=== PATIENT | female | born 1930 | race Asian ===

== ENCOUNTER 2016-04-22 10:35 | Inpatient (IN) | payer OTHER ==
--- NOTE | 2016-04-22 11:17 | UCPHY ---
H & P Patient Type: New Chief Complaint Nursing Narrative: Patient to with high blood pressure and dizziness this am. Patient is new resident at assisted living [facility] since 3 weeks ago. Patient called daughter this am and said she was dizzy. Time Seen by Provider: 04/22/16 11:10 HPI/ROS: This patient presents with a chief complaint of bifrontal headache, dizziness and elevated blood pressure which began early this morning. She is unable to speak described the characteristics of her dizziness although she feels extremely weak and her daughter says that she is barely able to walk and was unable to dress herself. At the assisted living facility here by blood pressure was as high as 170/116. She has been treated in the past for high blood pressure but has taken no medications for approximately 2 years. She describes photophobia but denies URI symptoms, cough, chest pain, shortness of breath nausea, vomiting or abdominal pain. The patient does not volunteer answers easily and throughout keeps her eyes shut. She recently moved to [place] from [place]. REVIEW OF SYSTEMS: Constitutional: No fever, weak and fatigued Eyes: Photophobia otherwise no complaints ENT: No recent sore throat or nasal congestion. No visual complaints Respiratory: Denies shortness of breath or cough Cardiac: Elevated blood pressure, no chest pain Gastrointestinal: Denies nausea, vomiting, abdominal pain or diarrhea Genitourinary: Not addressed Musculoskeletal: Chronic back pain, no edema and no calf pain Skin: No rash Neurological: Headache Source: Patient, RN notes reviewed - Personal History Current Tetanus Diphtheria and Acellular Pertussis (TDAP): Yes Tetanus Vaccine Date: < 10 years - Medical/Surgical History Hx Asthma: No Hx Chronic Respiratory Disease: No Hx Diabetes: No Hx Cardiac Disease: Yes Hx Renal Disease: No Hx Cirrhosis: No Hx Alcoholism: No Hx HIV/AIDS: No Hx Splenectomy or Spleen Trauma: No Other PMH: medical- HTN, GERD, chronic back pain, depression, chronic diarrhea, glaucoma, saesonal allergies. surgeries- back surgery, cortisone injections to back, appy - Family History Significant Family History: No pertinent family hx - Social History Smoking Status: Never smoked - Physical Exam Exam: GENERAL: Well-appearing, well-nourished and in no acute distress. HEAD: Atraumatic, normocephalic. EYES: Pupils equal round and reactive to light, extraocular movements intact, sclera anicteric, conjunctiva are normal. ENT: TMs normal, nares patent, oropharynx clear without exudates. Moist mucous membranes. NECK: Normal range of motion, supple without lymphadenopathy or JVD. Nontender LUNGS: Prominent rales are noticed at the left base posteriorly. The patient is in no respiratory distress HEART: Regular rate and rhythm without murmurs, rubs or gallops. ABDOMEN: Soft with some very mild tenderness. No guarding, no rebound. No masses appreciated. EXTREMITIES: Normal range of motion, no pitting or edema. No clubbing or cyanosis. NEUROLOGICAL: Cranial nerves II through XII grossly intact. Normal speech but speaks sparingly, she follows commands well and I can detect no motor dysfunction. PSYCH: Quiet and reserved SKIN: Warm, dry, normal turgor, no visible rashes or lesions. Constitutional: Initial Vital Signs Temperature (C) 37.0 C 04/22/16 10:44 Heart Rate 79 04/22/16 10:44 Respiratory Rate 20 04/22/16 10:44 Blood Pressure 227/100 H 04/22/16 10:44 O2 Sat (%) 92 04/22/16 10:44 O2 Delivery Mode Room Air Allergies/Adverse Reactions: codeine Allergy (Verified 04/22/16 10:44) Penicillins Allergy (Verified 04/22/16 10:43) Home Medications: Medication Instructions Recorded ALPHAGAN P 0.1% (*) 1 drop BID 04/22/16 Ativan (*) 04/22/16 Cholecalciferol Vit D3 [Vitamin D3 3,000 units DAILY 04/22/16 (*)] Dexlansoprazole [Dexilant] 60 mg DAILY 04/22/16 Dicyclomine HCl 04/22/16 Docusate Sodium [Colace 100 MG (*)] 100 mg DAILY 04/22/16 Ipratropium 0.03% Nasal [Atrovent 2 sprays TID 04/22/16 0.03% Nasal (*)] Pregabalin [Lyrica 50mg (*)] 25 mg BID 04/22/16 Sucralfate [Carafate 1 GM (*)] 1 g HS 04/22/16 Vortioxetine Hydrobromide DAILY 04/22/16 [Trintellix] ZyrTEC 10 mg (*) 10 mg DAILY 04/22/16 traMADol [Ultram 50 mg (*)] 04/22/16 Medical Decision Making - Diagnostics EKG Interpretation: An EKG shows no acute changes. Imaging: A non contrasted CT scan of the head shows a stay stable elderly brain with no acute changes. A chest x-ray shows mild cardiomegaly without other findings of congestive heart failure. The radiologist also thought that there are changes in the retrocardiac area consistent with either an infiltrate or atelectasis. ED Course/Re-evaluation: The patient was monitored throughout her stay in the department and she remained stable and in good condition Because this patient is incapacitated and is not exactly clear what problem is it was elected to admit the patient. Arrangements have been made through the hospitalist service to admit this patient. Currently we are waiting for a bed. Differential Diagnosis: I suspect that this patient is suffering from vertigo but that this is not related to a serious intra is cranial problem. There are no metabolic abnormalities nor any obvious end-organ effects from her elevated blood pressure. - Data Points Laboratory Results: Laboratory Results 04/22/16 11:40 04/22/16 11:40 04/22/16 11:40 WBC 6.24 10^3/uL (3.80-9.50) RBC 4.42 10^6/uL (4.18-5.33) Hgb 14.2 g/dL (12.6-16.3) Hct 42.0 % (38.0-47.0) MCV 95.0 fL (81.5-99.8) MCH 32.1 pg (27.9-34.1) MCHC 33.8 g/dL (32.4-36.7) RDW 12.4 % (11.5-15.2) Plt Count 191 10^3/uL (150-400) MPV 9.5 fL (8.7-11.7) Neut % (Auto) 65.6 % (39.3-74.2) Lymph % (Auto) 24.8 % (15.0-45.0) [place] % (Auto) 7.1 % (4.5-13.0) Eos % (Auto) 1.6 % (0.6-7.6) Baso % (Auto) 0.6 % (0.3-1.7) Nucleat RBC Rel Count 0.0 % (0.0-0.2) Absolute Neuts (auto) 4.09 10^3/uL (1.70-6.50) Absolute Lymphs (auto) 1.55 10^3/uL (1.00-3.00) Absolute Monos (auto) 0.44 10^3/uL (0.30-0.80) Absolute Eos (auto) 0.10 10^3/uL (0.03-0.40) Absolute Basos (auto) 0.04 10^3/uL (0.02-0.10) Absolute Nucleated RBC 0.00 10^3/uL (0-0.01) Immature Gran % 0.3 % (0.0-1.1) Immature Gran # 0.02 10^3/uL (0.00-0.10) Sodium 136 mEq/L (134-144) Potassium 3.7 mEq/L (3.5-5.2) Chloride 98 mEq/L (97-110) Carbon Dioxide 29 mEq/l (22-31) Anion Gap 9 mEq/L (8-16) BUN 13 mg/dL (7-23) Creatinine 0.5 L mg/dL (0.6-1.0) Estimated GFR > 60 Glucose 96 mg/dL (70-100) Calcium 9.0 mg/dL (8.5-10.4) Total Bilirubin 1.1 mg/dL (0.1-1.4) AST 14 IU/L (14-46) ALT 17 IU/L (9-52) Alkaline Phosphatase 44 IU/L (38-126) Troponin I < 0.012 ng/mL (0-0.034) NT-Pro-B Natriuret Pep 200 pg/mL (0-450) Total Protein 6.8 g/dL (6.3-8.2) Albumin 3.7 g/dL (3.5-5.0) Medications Given: Discontinued Medications Tramadol HCl (Ultram) 50 mg PO ONCE ONE Stop: 04/22/16 13:07 Last Admin: 04/22/16 13:08 Dose: 50 mg Departure - Departure Disposition: Home, Routine, Self-Care Clinical Impression: Headache, Elevated blood pressure reading Condition: Good - PQRS PQRS Measurement: Not applicable
--- NOTE | 2016-04-22 11:45 | CPEKG ---
Heart Rate: 74 RR Interval: 811 P-R Interval: 188 QRSD Interval: 84 QT Interval: 424 QTC Interval: 471 P [place]: 1 QRS [place]: -19 T Wave [place]: -36 EKG Severity - ABNORMAL ECG - EKG Impression: SINUS RHYTHM EKG Impression: CONSIDER LEFT VENTRICULAR HYPERTROPHY EKG Impression: NONSPECIFIC T ABNORMALITIES, INFERIOR LEADS Electronically Signed By: Andrade Lundy 22-Apr-2016 11:45:47
[2016-04-22 11:50] LABS: % IMMATURE GRANULYOCYTES 0.3 % (0.0-1.1); ABSOLUTE IMMATURE GRANULOCYTES 0.02 10^3/uL (0.00-0.10); ADD DIFF? NO; ADD MORPH? NO; ADD SCAN? NO; ATYPICAL LYMPHOCYTE FLAG 10 (0-99); FRAGMENT RBC FLAG 0 (0-99); HEMOGLOBIN 14.2 g/dL (12.6-16.3); LEFT SHIFT FLG 0 (0-99); LIPEMIA HEMOLYSIS FLAG 90 (0-99); MEAN CELL HEMOGLOBIN 32.1 pg (27.9-34.1); MEAN CELL HEMOGLOBIN CONCENTR. 33.8 g/dL (32.4-36.7); MEAN PLATELET VOLUME 9.5 fL (8.7-11.7); PLATELET CLUMPS FLAG 0 (0-99); PLATELET COUNT 191 10^3/uL (150-400); RED BLOOD CELL COUNT 4.42 10^6/uL (4.18-5.33); RED CELL DISTRIBUTION WIDTH 12.4 % (11.5-15.2)
[2016-04-22 12:04] LABS: ALANINE AMINOTRANSFERASE 17 IU/L (9-52); ALBUMIN 3.7 g/dL (3.5-5.0); ALKALINE PHOSPHATASE 44 IU/L (38-126); ANION GAP 9 mEq/L (8-16); ASPARTATE AMINOTRANSFERASE 14 IU/L (14-46); BILIRUBIN,TOTAL 1.1 mg/dL (0.1-1.4); CARBON DIOXIDE 29 mEq/l (22-31); CHLORIDE 98 mEq/L (97-110); CREATININE 0.5 mg/dL (0.6-1.0); GLOMERULAR FILTRATION RATE > 60; GLUCOSE 96 mg/dL (70-100); SODIUM 136 mEq/L (134-144); TOTAL PROTEIN 6.8 g/dL (6.3-8.2)
[2016-04-22 12:05] LABS: POTASSIUM 3.7 mEq/L (3.5-5.2)
[2016-04-22 12:13] LABS: TROPONIN I < 0.012 ng/mL (0-0.034)
--- NOTE | 2016-04-22 12:30 | DX ---
Chest, AP Upright and Lateral Views - April 22, 2016, at 11:54 a.m. Clinical History: 86-year-old female with an elevated blood pressure, rales at the left base, and diz ziness. Comparison Study: None. Findings: The cardiac silhouette appears mildly enlarged (even given the portable AP technique). Ther e is mural calcification of the thoracic aorta. Costochondral calcifications are observed. On the lat eral view, there is some increased attenuation at the posterior lung base, which may be left-sided (q uery mild airspace disease). There is an upper lumbar vertebroplasty and compression deformity. There is a mild sigmoid-shaped thoracolumbar scoliosis. There is no peripheral interstitial edema, pleural effusion, or pneumothorax. The trachea is midline. Impression: 1. Possible left posteromedial lower lobe infiltrate versus subsegmental atelectasis or scar. 2. Borderline-cardiomegaly, without congestive heart failure.
--- NOTE | 2016-04-22 12:34 | CT ---
CT Brain (Without Contrast) April 22, 2016 at 1205 hours History: Headache and elevated blood pressure. Comparison: None relevant. Technique: Axial computed tomographic images of the brain without contrast. Dose reduction techniques were utilized. Findings: Ventricles, cisterns, and sulci are widened consistent with atrophy. No hydrocephalus, mid line shift/herniation, or epidural/subdural hematomas. No acute intraparenchymal hemorrhage or mass e ffect. Cerebrovascular atherosclerosis. Hypodensities in the white matter of bilateral cerebral hemis pheres. Bone windows demonstrate no displaced fractures. Paranasal sinuses and mastoid air cells are clear. Impression: 1. Moderate atrophy. 2. No acute hemorrhage, hydrocephalus, or mass effect. 3. Cerebrovascular atherosclerosis. 4. No definite acute infarct. 5. Moderate microvascular ischemic disease. Critical results relayed by Dr. Mauro Pillai to Dr. Andrade Lundy on April 22, 2016 at 1232 hours.
[2016-04-22] MEDS ORDERED: traMADol 50 MG TAB ONE (13:04)
[2016-04-22] MEDS ORDERED: traMADol 50 MG TAB PO ONE (13:06)
[2016-04-22 14:06] LABS: COLOR YELLOW; LEUKOCYTE ESTERASE,URINE NEGATIVE (NEGATIVE); NITRITE,URINE NEGATIVE (NEGATIVE); PH,URINE 7.5 (5.0-7.5)
[2016-04-22] MEDS ORDERED: ONDANSETRON DISINTEGRATING 4 MG TAB PO PRN (16:21)
[2016-04-22] MEDS ORDERED: ONDANSETRON 4 MG/2 ML VIAL IVP PRN (16:21)
[2016-04-22] MEDS ORDERED: LISINOPRIL 5 MG TAB PO SCH (16:30)
[2016-04-22] MEDS ORDERED: LABETALOL HCL 200 MG in D5W 200 ML IV SCH (16:30)
--- NOTE | 2016-04-22 16:42 | CPEKG ---
Heart Rate: 74 RR Interval: 811 P-R Interval: 184 QRSD Interval: 86 QT Interval: 428 QTC Interval: 475 P [place]: 24 QRS [place]: 18 T Wave [place]: -28 EKG Severity - ABNORMAL ECG - EKG Impression: SINUS RHYTHM EKG Impression: ABNRM R PROG, CONSIDER ASMI OR LEAD PLACEMENT EKG Impression: BORDERLINE T ABNORMALITIES, INFERIOR LEADS Electronically Signed By: Jose Ng 23-Apr-2016 06:56:10
--- NOTE | 2016-04-22 17:23 | PDGENHP ---
History and Physical - Chief Complaint dizziness, headache - History of Present Illness 86 yo female with h/o hypertension though currently off medications due to issues with hypotension, presented to urgent care with dizziness and headache. She just moved to [facility] in [place] from [place] 3 weeks ago. She had been feeling well, but awoke this am with dizziness and headache. She denies vertigo. She denies vision changes. She denies CP or SOB. No fevers or chills. No N/V/D or abdominal pain. In Urgent care, her BP was found to be quite elevated, as high as 220's/110's. She is directly admitted to the hospital for further management. History Information - Allergies/Home Medication List Allergies/Adverse Reactions: casein Allergy (Verified 04/22/16 16:30) codeine Allergy (Verified 04/22/16 10:44) gluten Allergy (Verified 04/22/16 16:30) lisinopril Allergy (Unverified 04/22/16 18:45) Other-Enter Comments Penicillins Allergy (Verified 04/22/16 10:43) Home Medications: Acetaminophen [Tylenol Arthritis] 650 mg PO DAILY PRN 04/22/16 [Last Taken Unknown] Calcium Citrate W/Vit D [Citracal + D (OTC)] 3 tab PO DAILY 04/22/16 [Last Taken Unknown] Cetirizine [ZyrTEC 10 mg (*)] 10 mg PO DAILY 04/22/16 [Last Taken Unknown] Cholecalciferol Vit D3 [Vitamin D3 (*)] 3,000 units PO DAILY 04/22/16 [Last Taken Unknown] Dexlansoprazole [Dexilant] 60 mg PO DAILY 04/22/16 [Last Taken 04/22/16] Dicyclomine [Bentyl 10 MG (*)] 10 mg PO DAILY PRN 04/22/16 [Last Taken Unknown] Docusate Sodium [Colace 100 MG (*)] 100 mg PO BID PRN 04/22/16 [Last Taken Unknown] LORazepam [Ativan (*)] 0.5 mg PO HS 04/22/16 [Last Taken Unknown] Pregabalin [Lyrica 25mg (RX)] 25 mg PO BID@12,17 04/22/16 [Last Taken 04/22/16 12:00] Sucralfate [Carafate 1 GM (*)] 1 gm PO ACHS 04/22/16 [Last Taken Unknown] Timolol 0.25% [TIMOPTIC 0.25% (*)] 1 drops EACHEYE DAILY 04/22/16 [Last Taken Unknown] Vortioxetine Hydrobromide [Brintellix] 5 mg PO DAILY 04/22/16 [Last Taken 12:00] traMADol [Ultram 50 mg (*)] 50 mg PO DAILY PRN 04/22/16 [Last Taken 04/22/16] I have personally reviewed and updated: family history, medical history, social history, surgical history - Past Medical History hypertension - Surgical History Reports: appendectomy Additional surgical history: spinal fusion - Family History Positive for: myocardial infarction (dad of [place] in his 70's) - Social History Smoking Status: Never smoked Alcohol Use: None Drug Use: None (Just moved to [facility] here in [place] from [place]) Review of Systems ROS: 10pt was reviewed & negative except for what was stated in HPI & below Physical Exam Temp Pulse Resp BP Pulse Ox 36.8 C 78 16 203/109 H 95 04/22/16 15:48 04/22/16 15:48 04/22/16 15:48 04/22/16 15:48 04/22/16 15:48 Constitutional: no apparent distress Eyes: PERRL Ears, Nose, Mouth, Throat: moist mucous membranes Cardiovascular: regular rate and rhythym, no murmur, rub, or gallop Respiratory: no respiratory distress, clear to auscultation Gastrointestinal: normoactive bowel sounds, soft, non-tender abdomen, other (no abdominal bruits) Skin: warm Neurologic: AAOx3 Psychiatric: interacting appropriately Lab Data & Imaging Review 04/22/16 11:40 04/22/16 11:40 WBC 6.24 10^3/uL (3.80-9.50) 04/22/16 11:40 RBC 4.42 10^6/uL (4.18-5.33) 04/22/16 11:40 Hgb 14.2 g/dL (12.6-16.3) 04/22/16 11:40 Hct 42.0 % (38.0-47.0) 04/22/16 11:40 MCV 95.0 fL (81.5-99.8) 04/22/16 11:40 MCH 32.1 pg (27.9-34.1) 04/22/16 11:40 MCHC 33.8 g/dL (32.4-36.7) 04/22/16 11:40 RDW 12.4 % (11.5-15.2) 04/22/16 11:40 Plt Count 191 10^3/uL (150-400) 04/22/16 11:40 MPV 9.5 fL (8.7-11.7) 04/22/16 11:40 Neut % (Auto) 65.6 % (39.3-74.2) 04/22/16 11:40 Lymph % (Auto) 24.8 % (15.0-45.0) 04/22/16 11:40 [place] % (Auto) 7.1 % (4.5-13.0) 04/22/16 11:40 Eos % (Auto) 1.6 % (0.6-7.6) 04/22/16 11:40 Baso % (Auto) 0.6 % (0.3-1.7) 04/22/16 11:40 Nucleat RBC Rel Count 0.0 % (0.0-0.2) 04/22/16 11:40 Absolute Neuts (auto) 4.09 10^3/uL (1.70-6.50) 04/22/16 11:40 Absolute Lymphs (auto) 1.55 10^3/uL (1.00-3.00) 04/22/16 11:40 Absolute Monos (auto) 0.44 10^3/uL (0.30-0.80) 04/22/16 11:40 Absolute Eos (auto) 0.10 10^3/uL (0.03-0.40) 04/22/16 11:40 Absolute Basos (auto) 0.04 10^3/uL (0.02-0.10) 04/22/16 11:40 Absolute Nucleated RBC 0.00 10^3/uL (0-0.01) 04/22/16 11:40 Immature Gran % 0.3 % (0.0-1.1) 04/22/16 11:40 Immature Gran # 0.02 10^3/uL (0.00-0.10) 04/22/16 11:40 Sodium 136 mEq/L (134-144) 04/22/16 11:40 Potassium 3.7 mEq/L (3.5-5.2) 04/22/16 11:40 Chloride 98 mEq/L (97-110) 04/22/16 11:40 Carbon Dioxide 29 mEq/l (22-31) 04/22/16 11:40 Anion Gap 9 mEq/L (8-16) 04/22/16 11:40 BUN 13 mg/dL (7-23) 04/22/16 11:40 Creatinine 0.5 mg/dL (0.6-1.0) L 04/22/16 11:40 Estimated GFR > 60 04/22/16 11:40 Glucose 96 mg/dL (70-100) 04/22/16 11:40 Calcium 9.0 mg/dL (8.5-10.4) 04/22/16 11:40 Total Bilirubin 1.1 mg/dL (0.1-1.4) 04/22/16 11:40 AST 14 IU/L (14-46) 04/22/16 11:40 ALT 17 IU/L (9-52) 04/22/16 11:40 Alkaline Phosphatase 44 IU/L (38-126) 04/22/16 11:40 Troponin I < 0.012 ng/mL (0-0.034) 04/22/16 11:40 NT-Pro-B Natriuret Pep 200 pg/mL (0-450) 04/22/16 11:40 Total Protein 6.8 g/dL (6.3-8.2) 04/22/16 11:40 Albumin 3.7 g/dL (3.5-5.0) 04/22/16 11:40 Urine Color YELLOW 04/22/16 14:00 Urine Appearance CLEAR 04/22/16 14:00 Urine pH 7.5 (5.0-7.5) 04/22/16 14:00 Ur Specific [place] 1.015 (1.002-1.030) 04/22/16 14:00 Urine Protein NEGATIVE (NEGATIVE) 04/22/16 14:00 Urine Ketones NEGATIVE (NEGATIVE) 04/22/16 14:00 Urine Blood NEGATIVE (NEGATIVE) 04/22/16 14:00 Urine Nitrate NEGATIVE (NEGATIVE) 04/22/16 14:00 Urine Bilirubin NEGATIVE (NEGATIVE) 04/22/16 14:00 Urine Urobilinogen 0.2 EU (0.2-1.0) 04/22/16 14:00 Ur Leukocyte Esterase NEGATIVE (NEGATIVE) 04/22/16 14:00 Urine Glucose NEGATIVE (NEGATIVE) 04/22/16 14:00 Assessment & Plan Assessment: Hypertensive urgency - BP's >200/110 persistently, likely causing her headache and dizziness. Will give 5 mg IV Labetalol now, repeat in 30 min if SBP not down to 180. Aim for 10-20% reduction now and will start Labetalol drip overnight for titration of sbp to 160-180. Start oral Norvasc in AM and titrate off drip as able, up-titrate Norvasc over next 1-2 days. She developed cough from GENE inhibitor in the past. EKG shows T wave inversions. Pt has been CP free, initial troponin negative. Will repeat EKG and Troponin. Check echo as suspect LVH by EKG. Monitor on telemetry. GERD - cont PPI SPinal stenosis with neuropathic pain - will resume Lyrica, Tramadol once med rec completed Code status: DNR DVT PPLX: NESS Dispo: will likely require >48 hrs hospitalization for ongoing management of hypertensive urgency
[2016-04-22] MEDS: LABETALOL HCL 5 MG/ML 20 ML MDV IVP ONE ×2 (17:27→18:07)
[2016-04-22] MEDS: PANTOPRAZOLE SODIUM 40 MG TAB PO SCH (18:05)
[2016-04-22] MEDS: ACETAMINOPHEN 325 MG TAB PO PRN (18:24)
[2016-04-22] MEDS ORDERED: DICYCLOMINE 10 MG CAP PO PRN (19:03)
[2016-04-22] MEDS ORDERED: DOCUSATE SODIUM 100 MG CAP PO PRN (19:03)
[2016-04-22] MEDS: SUCRALFATE 1 GM TAB PO SCH (20:00)
[2016-04-22] MEDS: LORazepam 0.5 MG TAB PO SCH (20:00)
[2016-04-22] MEDS: PREGABALIN 25 MG CAP PO SCH (20:00)
[2016-04-22] MEDS ORDERED: LABETALOL HCL 5 MG/ML 20 ML MDV IVP PRN (20:10)
[2016-04-22] MEDS: HEPARIN 5,000 UNIT/0.5 ML SYR SC SCH (21:54)
[2016-04-23] MEDS: HEPARIN 5,000 UNIT/0.5 ML SYR SC SCH ×3 (06:18→21:21)
[2016-04-23] MEDS: SUCRALFATE 1 GM TAB PO SCH ×4 (06:24→21:22)
[2016-04-23] MEDS ORDERED: LABETALOL HCL 5 MG/ML 20 ML MDV IVP PRN (08:13)
[2016-04-23] MEDS ORDERED: VORTIOXETINE HYDROBROMIDE 5 MG PO SCH ×2 (09:00)
[2016-04-23] MEDS: ACETAMINOPHEN 325 MG TAB PO PRN ×3 (09:24→17:57)
[2016-04-23] MEDS: PANTOPRAZOLE SODIUM 40 MG TAB PO SCH (09:25)
[2016-04-23] MEDS: traMADol 50 MG TAB PO PRN (09:25)
[2016-04-23] MEDS: CETIRIZINE 10 MG TAB PO SCH (09:25)
--- NOTE | 2016-04-23 11:07 | ECHO ---
[id number] + + [phone] : : [place] [id number] : : [phone] + + Adult Echocardiographic Report + -----+ :Name: SHAHEED CARRANZA KStudy Date: 04/23/2016 07:59 AM BP: 184/95 mmHg : : Hospital Admission Number: [id number] Location : 217: :: 1930 Gender: Female Height: 59 in : :Age: 86 yrs Race: Weight: 105 lb : :Reason For Study: htn : : BSA: 1.4 meters2 : :History: HTN,LVH by ecg : + -----+ MMode/2D Measurements & Calculations IVSd: 1.3 cm RVDd: 2.3 cm FS: 37.8 % Ao root diam: LVPWd: 1.1 cm LVIDd: 4.1 cm EDV(Teich): 2.7 cm LVIDs: 2.5 cm 74.2 ml LA dimension: ESV(Teich): 3.2 cm 23.4 ml EF(Teich): 68.4 % LVLd ap4: 7.3 cm SV(MOD-sp4): EDV(MOD-sp4): 43.0 ml 68.0 ml LVLs ap4: 6.3 cm ESV(MOD-sp4): 25.0 ml EF(MOD-sp4): 63.2 % Normal Measurement Values: + + :LVIDd (3.5-5.7cm) IVSd (0.6-1.1cm) LVPWd (0.6-1.1cm) Aortic Root (2.0-3.7cm)Left Atrium (1.5-4.0cm): :LV Vol(d) (76-115ml) LV Vol(s) (29-48ml) Ejec Fraction (50-65%)PV Koko (0.6- 1.2m/s) TV Koko (0.4-1.0m/s) : :MV E Koko (0.8-1.0m/s)MV A Koko (0.3-1.0m/s)LVOT Koko (0.7-1.2m/s) Asc Ao Koko ( 0.9-1.8m/s) : + + Doppler Measurements & Calculations MV E max koko: Ao V2 max: AI max koko: LV V1 max: 62.7 cm/sec 121.0 cm/sec 429.0 cm/sec 92.5 cm/sec MV A max koko: Ao max P.9 mmHgAI max P.6 mmHgLV V1 max P.8 cm/sec Ao mean PG: AI dec slope: 3.4 mmHg MV E/A: 0.66 4.0 mmHg 254.0 cm/sec2 LV V1 mean PG: MV dec time: Ao V2 mean: AI P1/2t: 494.7 msec2.0 mmHg 0.26 sec 90.9 cm/sec LV V1 mean: Ao V2 VTI: 29.3 cm 69.6 cm/sec LV V1 VTI: 20.5 cm PA V2 max: PI end-d koko: TR max koko: 92.3 cm/sec 64.1 cm/sec 261.0 cm/sec PA max PG: TR max P.2 mmHg 3.4 mmHg RAP systole: 5.0 mmHg RVSP(TR): 32.2 mmHg Left Ventricle The left ventricle is normal in size and function. There is mild to moderate concentric left ventricular hypertrophy. There is Doppler evidence for diastolic dysfunction. Ejection Fraction = 60-65%. No regional wall motion abnormalities noted. Right Ventricle The right ventricle is normal in size and function. Atria The left atrial size is normal. Right atrial size is normal. Mitral Valve The mitral valve is normal. The mitral valve leaflets appear thickened, but open well. There is no mitral valve stenosis. There is moderate mitral regurgitation. Tricuspid Valve The tricuspid valve is normal in structure and function. There is no tricuspid stenosis. There is mild tricuspid regurgitation. Right ventricular systolic pressure is 32mmHg. Aortic Valve The aortic valve is trileaflet. There is mild aortic valve calcification. There is no aortic stenosis. Mild aortic regurgitation. Pulmonic Valve The pulmonic valve is not well visualized. Mild pulmonic valvular regurgitation. Great Vessels Mild aortic root dilatation. Pericardium/Pleural There is no pericardial effusion. Conclusion A two-dimensional transthoracic echocardiogram with M-mode and Doppler was performed. The left ventricle is normal in size and function. There is mild to moderate concentric left ventricular hypertrophy. There is Doppler evidence for diastolic dysfunction. Ejection Fraction = 60-65%. There is moderate mitral regurgitation. There is mild tricuspid regurgitation. Right ventricular systolic pressure is 32mmHg. Mild aortic regurgitation. Mild pulmonic valvular regurgitation. Mild aortic root dilatation. Final Reading Physician: Odalys Ruff signed on 04/23/2016 11:07 AM Ordering Physician: Alesia Mott Performed By: Nadia Ulloa
[2016-04-23] MEDS: PREGABALIN 25 MG CAP PO SCH ×2 (13:08→18:36)
[2016-04-23] MEDS: TIMOLOL 0.25% 5 ML OPHT.BTL EACHEYE SCH (17:05)
--- NOTE | 2016-04-23 17:30 | HOSPPROG ---
Hospitalist Progress Note Assessment/Plan: Hypertensive urgency - SBP improved to 170 from >200 yesterday afternoon. Symptoms improving. Will increase Norvasc dose, cont prn labetalol. Echo confirms LVH, nl LV fxn, +diastolic dysfunction. GERD - cont PPI Spinal stenosis with neuropathic pain- cont lyrica DNR DVT PPLX - lovenox Dispo - cont inpt Subjective: Pt feels better. Headache and dizziness improved. No CP, SOB or vision changes. Still feels a bit weak. Objective: Vital Signs Temp Pulse Resp BP Pulse Ox 37.0 C 72 18 137/83 H 91 L 04/23/16 15:35 04/23/16 15:35 04/23/16 15:35 04/23/16 15:35 04/23/16 15:35 04/22/16 04/23/16 04/24/16 05:59 05:59 05:59 Intake Total 300 Balance 300 - Physical Exam Constitutional: no apparent distress Eyes: PERRL Ears, Nose, Mouth, Throat: moist mucous membranes Cardiovascular: regular rate and rhythym Respiratory: no respiratory distress, clear to auscultation Gastrointestinal: normoactive bowel sounds, soft, non-tender abdomen Skin: warm Neurologic: AAOx3 Psychiatric: interacting appropriately ICD10 Worksheet Patient Problems: Problems Problem Status Diagnosed Elevated blood pressure reading Acute Headache Acute
[2016-04-23] MEDS: VORTIOXETINE HYDROBROMIDE 5 MG PO SCH (17:55)
[2016-04-23] MEDS: DOCUSATE SODIUM 100 MG CAP PO SCH (21:22)
[2016-04-23] MEDS: LORazepam 0.5 MG TAB PO SCH (21:23)
[2016-04-24 03:53] VITALS: TEMP 97.8
[2016-04-24] MEDS: HEPARIN 5,000 UNIT/0.5 ML SYR SC SCH (06:42)
--- NOTE | 2016-04-24 08:09 | PDIAF ---
- Diagnosis Diagnosis: hypertension Code Status: Do Not Resuscitate - Medication Management Discharge Medications: Medications to Continue on Transfer Acetaminophen [Tylenol Arthritis] 650 mg PO DAILY PRN 04/22/16 [Last Taken Unknown] Calcium Citrate W/Vit D [Citracal + D] 3 tab PO DAILY 04/22/16 [Last Taken Unknown] Cetirizine [ZyrTEC 10 mg (*)] 10 mg PO DAILY 04/22/16 [Last Taken Unknown] Cholecalciferol Vit D3 [Vitamin D3 (*)] 3,000 units PO DAILY 04/22/16 [Last Taken Unknown] Dexlansoprazole [Dexilant] 60 mg PO DAILY 04/22/16 [Last Taken 04/22/16] Dicyclomine [Bentyl 10 MG (*)] 10 mg PO DAILY PRN 04/22/16 [Last Taken Unknown] Docusate Sodium [Colace 100 MG (*)] 100 mg PO BID PRN 04/22/16 [Last Taken Unknown] LORazepam [Ativan (*)] 0.5 mg PO HS 04/22/16 [Last Taken Unknown] Pregabalin [Lyrica] 25 mg PO BID@12,04/22/16 [Last Taken 04/22/16 12:00] Sucralfate [Carafate 1 GM (*)] 1 gm PO ACHS 04/22/16 [Last Taken Unknown] Timolol 0.25% [TIMOPTIC 0.25% (*)] 1 drops EACHEYE DAILY 04/22/16 [Last Taken Unknown] Vortioxetine Hydrobromide [Trintellix] 5 mg PO DAILY 04/22/16 [Last Taken 12:00] traMADol [Ultram 50 mg (*)] 50 mg PO DAILY PRN 04/22/16 [Last Taken 04/22/16] amLODIPine BESYLATE [Norvasc 5 mg (*)] 5 mg PO DAILY #30 tab 04/24/16 [Last Taken Unknown] Discharge Medications: Refer to the Discharge Home Medication list for PRN reason. - Orders Services needed: Home Care, Registered Nurse, Physical Therapy, Occupational Therapy Home Care Face to Face: I certify that this patient was under my care and that I had the required [id number] encounter meeting the encounter requirements on the discharge day. My findings support the fact that the patient is homebound as defined in CMS Chapter 7 Medicare Benefits Manual 30.1.1, The condition of the patient is such that there exists a normal inability to leave home and consequently, leaving home would require a considerable and taxing effort. Diet Recommendation: sodium restricted Activity/Weight Bearing Restrictions: WBAT, walker dependent - Follow Up Care Current Providers and Referrals: NONE *PRIMARY CARE P,. [Primary Care Provider] - As per Instructions
[2016-04-24] MEDS: DOCUSATE SODIUM 100 MG CAP PO SCH (09:08)
[2016-04-24] MEDS: traMADol 50 MG TAB PO PRN (09:08)
[2016-04-24] MEDS: PANTOPRAZOLE SODIUM 40 MG TAB PO SCH (09:09)
[2016-04-24] MEDS: SUCRALFATE 1 GM TAB PO SCH ×2 (09:09→12:21)
[2016-04-24] MEDS: CETIRIZINE 10 MG TAB PO SCH (09:09)
[2016-04-24] MEDS: VORTIOXETINE HYDROBROMIDE 5 MG PO SCH (09:10)
[2016-04-24] MEDS: TIMOLOL 0.25% 5 ML OPHT.BTL EACHEYE SCH (09:11)
[2016-04-24 11:38] VITALS: BP 158/80; PULSE 66; RESP 20; O2SAT 94
[2016-04-24] MEDS: PREGABALIN 25 MG CAP PO SCH (12:21)
--- NOTE | 2016-04-24 20:54 | GDS ---
[f rep st] DISCHARGE SUMMARY DISCHARGE DIAGNOSES: Hypertensive urgency. CONSULTANTS: None. HISTORY: For details, please see dictated history and physical by myself on April 22, 2016. In [facility], the patient is an 86-year-old female with a history of hypertension who recently relocated to [facility] from [place], who presented to the Urgent Care with headache and dizziness. She was found to be quite hypertensive with blood pressures greater than 200/110 and was directly admitted to the [facility] for further management. HOSPITAL COURSE: The patient arrived to the Progressive Care Unit in stable condition. She was give n a dose of IV labetalol for a blood pressure on arrival of 203/109. This achieved approximately a 2 0% reduction in her blood pressure, bringing it down to 174/92. She was started on oral Norvasc 2.5 mg daily. A labetalol drip was ordered with the goal to keep her blood pressure 160-180 systolic ove rnight. The following day, her blood pressure in the 170s/90s. Her Norvasc dose was up-titrated to 5 mg daily which achieved significant improvement with her blood pressure in the 140/90 range at the time of discharge. Her symptoms had completely resolved with improvement of her blood pressure. DISPOSITION: Patient was discharged back to her assisted living facility in stable condition. FOLLOWUP: Patient is establishing a primary care with physician house calls and will need a followup within 1 week for a blood pressure recheck and titration of medication as indicated. DISCHARGE MEDICATIONS: Please see [facility] for complete updated outpatient medication list. New medications on discharge include amlodipine 5 mg p.o. daily (#30, no refills). /[id number]/MODL
== END 2016-04-24 12:43 | disposition home or self-care (01) | DRG 305 ==
LOC: CED 10:35 → CEDHOLD 12:49 → F3E 15:37 → OBSVTOIN 16:21 → F2W 19:15
PROVIDERS: ADMIT Internal Medicine; ATTEND Internal Medicine
DX: I16.0 Hypertensive urgency (principal); K21.9 Gastro-esophageal reflux disease without esophagitis; M48.00 Spinal stenosis, site unspecified; Z66 Do not resuscitate
CPT/HCPCS: 70450-PO; 71020-PO; 80053-PO; 81003-PO; 83880-PO; 84484-PO; 85025-PO; 97161-GP; 97166-GO; 99205-PO; G0463-PO; G8978-GP-CJ; G8979-GP-CI; G8987-GO-CI; G8988-GO-CI; J3490